=== PATIENT | female | born 1995 | race Caucasian/White ===

== ENCOUNTER 2016-06-10 19:36 | Emergency (ER) | payer MEDICAID ==
[~2016-06-10 19:36] MED LIST: COLACE-DPS100 MG PO; IRON325 MG PO; MACROBID100 MG PO; MOTRIN-DPS800 MG PO; NIPPLECREAM TP; PERCOCET 5 DPS1 TAB PO; PRENATAL VIT1 TAB PO
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
== END 2016-06-10 21:40 | disposition home or self-care (01) ==
LOC: ER 19:36
DX: O20.0 Threatened abortion (principal); O99.331 Smoking (tobacco) complicating pregnancy, first trimester; Z3A.01 Less than 8 weeks gestation of pregnancy; Z79.899 Other long term (current) drug therapy

== ENCOUNTER 2016-07-07 11:27 | Emergency (ER) | payer MEDICAID ==
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
== END 2016-07-07 14:14 | disposition home or self-care (01) ==
LOC: ER 11:27
DX: O9A.219 Injury, poisoning and certain other consequences of external causes complicating pregnancy, unspecified trimester (principal); S00.93XA Contusion of unspecified part of head, initial encounter; V47.5XXA Car driver injured in collision with fixed or stationary object in traffic accident, initial encounter; O99.330 Smoking (tobacco) complicating pregnancy, unspecified trimester; F17.210 Nicotine dependence, cigarettes, uncomplicated

== ENCOUNTER → 2016-09-21 | Outpatient (CLI) | payer MEDICAID | END | disposition home or self-care (01) | LOC: RAD.S 12:46 | DX: Z36 Encounter for antenatal screening of mother (principal); Z3A.20 20 weeks gestation of pregnancy ==